=== PATIENT | female | born 1990 | race Hispanic/Latino ===

== ENCOUNTER 2021-03-08 16:02 | Emergency (ER) | payer OTHER, SELFPAY ==
[2021-03-08 16:33] VITALS: BP 143/91; PULSE 126; RESP 18; TEMP 37.7; O2SAT 100
--- NOTE | 2021-03-08 16:35 | ED.URI ---
HPI - URI/Sore Throat General Chief Complaint: Upper Respiratory Infection Stated Complaint: cold/flu symptoms Time Seen by Provider: 03/08/21 16:57 Source: patient and RN notes reviewed Mode of arrival: ambulatory Limitations: no limitations History of Present Illness HPI Narrative: 30-year-old female presents with concern for exposure to strep and Covid. Reports yesterday she started having body aches, cough, low-grade fever, sinus drainage and sneezing. Reports she has been taking [id number] cold and flu medicines. She denies shortness of breath, loss of sense of taste or smell. MD elicited complaint: cough Related Data Home Medications Medication Instructions Recorded Confirmed amoxicillin-pot clavulanate 500 tablet PO BID 03/08/21 03/08/21 escitalopram oxalate 10 mg PO DAILY 03/08/21 03/08/21 Allergies Allergy/AdvReac Type Severity Reaction Status Date / Time No Known Allergies Allergy Unverified 12/12/15 19:14 Review of Systems Review of Systems: Narrative: CONSTITUTIONAL: Denies malaise, chills, sweats. Reports fever. EYES: Denies visual changes, redness, or discharge. ENT: Reports rhinorrhea, congestion. Denies sinus pain, otalgia and sore throat. CARDIOVASCULAR: Denies chest pain, palpitations, or edema. RESPIRATORY: Reports cough, sneezing. Denies dyspnea. GASTROINTESTINAL: Denies abdominal pain, nausea, vomiting, diarrhea SKIN: Denies rash or itching. MUSCULOSKELETAL: Reports myalgia. NEUROLOGIC: Denies headache. All systems reviewed & are unremarkable except as noted in HPI and below PMFSH Social History Social History Gender identity (if verbalized by the patient): Female Comments At time of signature, agree with nursing past medical, surgical, social and family history. There is no relevant family history pertinent to the presenting complaint Exam Narrative: Exam Narrative: GENERAL: Well-appearing, well-nourished, and in no acute distress. HEAD: Normocephalic EYES: PERRLA, conjunctivae clear ENT: Nares clear, turbinates erythematous, clear discharge. Mucous membranes moist. TM pearly martinez with sharp light reflex bilaterally; no tragal tenderness. Oropharynx not erythematous without lesions. Tonsils not enlarged and without exudate, no drooling, no hoarseness, no trismus, uvula midline. NECK: Supple. No lymphadenopathy CHEST: Clear to auscultation, breath sounds equal. No wheezing, rhonchi, rales, or stridor. No respiratory distress, speaks in full sentences. HEART: Regular rate and rhythm. No murmur heard. SKIN: Warm, dry, no rash. NEURO: Alert and oriented x3. PSYCH: Normal mood and affect Course Course Emergency Course: Patient is aware of diagnosis, understands and agrees to treatment plan. Anticipatory guidance given. Patient agrees to follow-up as directed and is aware of reasons to seek care at the emergency department. Portions of this record may have been created with voice recognition software Vital Signs Vital signs: Vital Signs Temperature 99.9 F H 03/08/21 16:33 Pulse Rate 126 H 03/08/21 16:33 Respiratory Rate 18 03/08/21 16:33 Blood Pressure 143/91 H 03/08/21 16:33 Pulse Oximetry 100 03/08/21 16:33 Temperature 99.9 F H 03/08/21 16:33 Pulse Rate 126 H 03/08/21 16:33 Respiratory Rate 18 03/08/21 16:33 Blood Pressure 143/91 H 03/08/21 16:33 Pulse Oximetry 100 03/08/21 16:33 Reviewed. Patient has been instructed to follow up with her primary care provider within the next week regarding her elevated blood pressure today. MDM - URI/Sore Throat MDM Narrative Medical decision making narrative: Differential diagnosis considered: Berman virus, strep pharyngitis, allergic rhinitis, upper respiratory tract infection, sinusitis, rhinosinusitis, nasopharyngitis. viral pharyngitis, otitis media, otitis externa, pneumonia, bronchitis, viral cough syndrome, viral syndrome, and influenza. Exam findings show no acute concerns or changes; patient is non-t
[2021-03-09 19:24] LABS: SARS-CoV-2 RNA PCR Negative
== END 2021-03-08 17:37 | disposition home or self-care (01) ==
PROVIDERS: Emergency Provider Nurse Practitioner; PCP Internal Medicine
DX: J06.9 Acute upper respiratory infection, unspecified (principal); Z20.822 Contact with and (suspected) exposure to COVID-19; F32.9 Major depressive disorder, single episode, unspecified; F41.9 Anxiety disorder, unspecified
CPT/HCPCS: 87081; 87426; 87880; 99213; C9803; G0463; U0003; U0005

== ENCOUNTER 2023-06-29 20:18 | Emergency (ER) | payer OTHER, SELFPAY ==
[2023-06-29 20:40] VITALS: BP 149/92; PULSE 99; RESP 16; TEMP 36.4; O2SAT 100
--- NOTE | 2023-06-29 23:21 | ED.PSYCH ---
HPI - Psych General Chief Complaint: Psychiatric Symptoms Stated Complaint: depression/anxiety Time Seen by Provider: 06/29/23 22:19 History of Present Illness HPI Narrative: 33-year-old female with history of anxiety and depression reports for evaluation for anxiety and depression. Patient states 9 days ago she was started on fluoxetine by her PCP. She reports she was on Lexapro about 2 years ago for length of time and then switched to fluoxetine and was on it for a few months and discontinued after feeling better. She has been off medications for a year and a half until she recently started Prozac again after having increased stressors in her life including at work and her home life. She states she has had multiple panic attacks recently and has not been able to sleep well. She thinks that she would feel much better if she could get a good night sleep. She came here with her brother at bedside because her family told her not to take her medicines today because they thought maybe it was the cause of her symptoms and brought her to the ED to talk to someone about her medication. She denies SI or HI. She does state that has had thoughts about it being easier if she was not alive, but she denies a plan and denies current SI or HI. She denies hallucinations, delusions, juanita. Related Data Home Medications Medication Instructions Recorded Confirmed amoxicillin 500 mg-potassium 500 tablet PO BID tooth 03/08/21 03/08/21 clavulanate 125 mg tablet escitalopram oxalate 10 mg tablet 10 mg PO DAILY 03/08/21 03/08/21 Allergies Allergy/AdvReac Type Severity Reaction Status Date / Time No Known Allergies Allergy Unverified 12/12/15 19:14 Review of Systems Review of Systems: CONSTITUTIONAL: Denies fever, chills EYES: Denies visual changes, redness, or discharge. ENT: Denies rhinorrhea, congestion, sore throat, or otalgia. CARDIOVASCULAR: Denies chest pain, palpitations, or edema. RESPIRATORY: Denies cough or dyspnea. GASTROINTESTINAL: Denies abdominal pain, nausea, vomiting, or diarrhea. GENITOURINARY: Denies dysuria or hematuria. SKIN: Denies rash or itching. MUSCULOSKELETAL: Denies back pain, joint pain, or myalgia. NEUROLOGIC: Denies headache, numbness, dizziness, or weakness. PSYCHIATRIC: See HPI [facility] Social History Social History Substance use type: does not use Gender identity (if verbalized by the patient): Female Exam Narrative: GENERAL: Well-appearing, in no acute distress. HEAD: Normocephalic NECK: Supple. CHEST: No respiratory distress. Clear to auscultation, no adventitious breath sounds. HEART: Regular rate and rhythm. No murmur heard. Normal peripheral pulses. EXTREMITIES: Normal range of motion. No edema. SKIN: Warm, dry, no rash. NEURO: No focal deficits. Alert and oriented x3. PSYCH: Normal mood and affect. Good judgment and insight. No active psychosis, hallucinations, delusions, juanita. Course Vital Signs Vital signs: Vital Signs Temperature 97.5 F L 06/29/23 20:40 Pulse Rate 99 06/29/23 20:40 Respiratory Rate 16 06/29/23 20:40 Blood Pressure 149/92 H 06/29/23 20:40 Pulse Oximetry 100 06/29/23 20:40 Oxygen Delivery Room Air 06/29/23 20:40 Temperature 97.5 F L 06/29/23 20:40 Pulse Rate 89 06/29/23 23:44 Respiratory Rate 16 06/29/23 23:44 Blood Pressure 145/86 H 06/29/23 23:44 Pulse Oximetry 99 06/29/23 23:44 Oxygen Delivery Room Air 06/29/23 20:40 MDM - Psych MDM Narrative Medical decision making narrative: 33-year-old female with history of anxiety and depression reports for evaluation for anxiety and depression. She was recently started on fluoxetine by her PCP 9 days ago and reported to the emergency department because she is continue to have anxiety and depression and was unsure if she should continue these medications. Vitals are stable other than mildly elevated blood p
[2023-06-29 23:44] VITALS: BP 145/86; PULSE 89; RESP 16; O2SAT 99
== END 2023-06-29 23:45 | disposition home or self-care (01) ==
PROVIDERS: Emergency Provider Physician Assistant; PCP Internal Medicine
DX: F41.9 Anxiety disorder, unspecified (principal); F32.A Depression, unspecified
CPT/HCPCS: 99281; 99283